=== PATIENT | female | born 1950 | race Caucasian/White ===

== ENCOUNTER 2024-03-25 11:00 | Outpatient (RCR) | payer MEDICARE, OTHER, SELFPAY ==
[2024-03-14 12:05] VITALS: BP 141/84; PULSE 72; TEMP 37.1
[2024-03-14 12:08] VITALS: BMI 20.4
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
--- NOTE | 2024-03-15 14:29 | PC.NURSE ---
Dr Marquis is aware of patient medication list including the OTC medication she takes along with Vitamins and Supplements she is on.
--- NOTE | 2024-03-17 15:41 | HO.PHP ---
Client's case has been opened and reviewed in treatment team.
--- NOTE | 2024-03-18 13:34 | HO.PHP ---
PHP staff member faxed over the referral for an OP therapist at [facility] for [facility]. PHP staff member is awaiting a call back with scheduled appointment dates and times.
--- NOTE | 2024-03-25 16:42 | HO.PHPPROGNO ---
Subjective Subjective Date of Service: 03/25/24 Reason For Visit: PTSD,depression Interim History: Patient seen for follow-up, anticipating discharge at the end of program today.?She continues to deal with pain, but has found the groups helpful and mostly has found having something to do everyday, daily structure was especially helpful. She is hoping to implement more routines into her day. Reports no acute issues or concerns. Medication compliant, medications well-tolerated. Denies any adverse effects.? Mood is stable. Denies thoughts of harming self ore others at this time. Denies any aggressive ideation or HI. Denies any paranoia or AH or VH. Sleep, appetite, energy stable. Medication Compliance: Yes Side effects from medications: No Attending Groups: Yes Review of Systems Acute medical concerns: No Medical Review of Systems: unchanged Mental Status Exam Mental Status Exam Narrative: Alert, oriented, in no acute distress. Calm, cooperative, engaged. No psychomotor agitation or neurovegetative retardation. Eye contact maintained. Mood depressed, affect dysthymic. Speech normal. Thought process linear, coherent. Thought content related to stressors, continued chronic thoughts of questioning the point of life, but denies any current SI, denies any intention, urge or plan to harm self. Denies any aggressive ideation or HI. No paranoia or delusional content elicited. No evidence of psychosis. Insight and judgment fair. Diagnostics Vital Signs (24Hr): BMI result Body Mass Index 20.4 Assessment & Plan Assessment & Plan (1) MDD (major depressive disorder), recurrent episode, severe: Status: Acute Code(s): F33.2 - Major depressive disorder, recurrent severe without psychotic features (2) Pain disorder associated with psychological and physical factors: Status: Acute Code(s): F45.42 - Pain disorder with related psychological factors (3) Post traumatic stress disorder (PTSD): Status: Acute Code(s): F43.10 - Post-traumatic stress disorder, unspecified Plan Discharge from [facility] Continue regular medications Refills sent to pharmacy Will defer further medication management to outpatient provider *Safety plan reviewed *Discharge Diagnoses reviewed with patient, as well as treatment course, discharge plan (including medication regime, medication management, potential side effects) as well as treatment rationale were also revisited *If patient wishes, they are welcome to have their outpatient provider reach out to me for any further questions or clarification as pertains to this patient?s clinical care/treatment during their stay at [facility] (contact information provided to patient)? Patient educated on: diagnosis and medication risk/benefits Informed Consent: understands Reason for contiued partial hosp. stay Substantial Risk for: stable for discharge Certification I certify that partial hospital treatment is medically necessary due to the symptoms and problems resulting from the patient's mental illness and the failure to treat the patient at the partial hospital level of care would likely result in the patient requiring inpatient psychiatric care which could not be prevented at a less intensive level of care. Total time managing care of this patient today _30___ minutes. Discharge Plan Discharge Attending provider: Cynthia Marquis Medications: Continued sertraline 100 mg tablet 100 mg PO DAILY liothyronine 5 mcg tablet 10 mcg PO BID levothyroxine 50 mcg tablet 50 mcg PO BID dextroamphetamine-amphetamine 15 mg tablet 1 tab PO TID progesterone micronized 100 mg capsule 200 mg PO DAILY MRX1 estradiol 0.025 mg/24 hr patch semiweekly 1 patch topical 2XW bupropion HCl 300 mg tablet extended release 24 hr 300 mg PO DAILY aripiprazole 2 mg tablet 2 mg PO BEDTIME Patient Comments: Patient takes at HS. clonazepam 2 mg tablet 2 mg PO BID tramadol 50 mg tablet 50 mg PO TID PRN (Reason: Pain) baclofen 20 mg tablet 20 mg PO TID PRN (Reason: muscle spasm) nxqhixetio-vpbkbpoxxmqda-bkrl 50-325-40 mg capsule 1 cap PO BID PRN (Reason: headache) hydrocodone-acetaminophen 10-325 mg tablet 1 tab PO DAILY PRN (Reason: pain) acetaminophen 500 mg Tablet 1,000 mg PO BID PRN (Reason: Pain) Rx Instructions: Patient takes OTC gabapentin 100 mg Capsule 100 mg PO BEDTIME vitamin B complex Tablet 2 tab PO DAILY Rx Instructions: Patient takes OTC multivitamin Capsule 2 cap PO DAILY Rx Instructions: OTC, patient states she takes 2 caps daily cholecalciferol (vitamin D3) [Vitamin D3] 50 mcg (2,000 unit) Capsule 50 mcg PO DAILY Rx Instructions: Patient takes OTC lidocaine 4 % Gel 1 appl TOPICAL DAILY Rx Instructions: Patient takes OTC hydrocortisone 5 mg Tablet See Rx Instructions .ROUTE .COMPLEX Rx Instructions: Take 3 tabs in the early am, 2 tabs late in the am, and 1 tab at 4:00pm. Stand Alone Forms: Patient Portal Discharge page Patient Education: Depression (DC) Print Language: Citizen Of [place]
== END 2024-03-25 23:59 | disposition home or self-care (01) ==
LOC: HO.PHPA 11:00
PROVIDERS: Visit Provider Psychiatry & Neurology Psychiatry
DX: F33.2 Major depressive disorder, recurrent severe without psychotic features (principal); F45.42 Pain disorder with related psychological factors; F43.10 Post-traumatic stress disorder, unspecified; Z79.899 Other long term (current) drug therapy
CPT/HCPCS: 90791; 90853